=== PATIENT | male | born 1980 | race Caucasian/White ===

== ENCOUNTER 2023-06-28 17:23 | Emergency (ER) | payer OTHER ==
[2023-06-28 17:59] VITALS: PULSE 78; RESP 18; TEMP 98.3
--- NOTE | 2023-06-28 19:05 | ED ---
General Adult HPI - General Chief complaint: Dental/Oral Stated complaint: poss L Side of Jaw Dislocate Time Seen by Provider: 06/28/23 17:45 Source: patient, RN notes reviewed, old records reviewed Mode of arrival: ambulatory Limitations: no limitations - History of Present Illness Initial comments: 43-year-old male with left sided jaw pain. Patient has been progressive. No specific injury. He believes that his job may be malaligned because he is unable to close his teeth Diaz. He does have history of poor dentition and has had teeth removed on the right. No fever. No facial swelling. He also reports history of TMJ and states he grinds his teeth at night. - Related Data Allergies Allergy/AdvReac Type Severity Reaction Status Date / Time No Known Allergies Allergy Verified 06/28/23 17:48 Review of Systems ROS Statement: Those systems with pertinent positive or pertinent negative responses have been documented in the HPI. ROS Other: All systems not noted in ROS Statement are negative. Past Medical History Past Medical History: GERD/Reflux History of Any Multi-Drug Resistant Organisms: None Reported Past Surgical History: Orthopedic Surgery Additional Past Surgical History / Comment(s): R Hand Past Psychological History: ADD/ADHD, Anxiety, Depression Smoking Status: Former smoker Past Alcohol Use History: None Reported Past Drug Use History: Marijuana General Exam Limitations: no limitations General appearance: alert, in no apparent distress Head exam: Present: atraumatic, normocephalic Eye exam: Present: normal appearance, PERRL ENT exam: Present: other (Mentation, patient is able to open and close his jaw but does have an underbite) Respiratory exam: Present: normal lung sounds bilaterally. Absent: respiratory distress, wheezes Cardiovascular Exam: Present: regular rate, normal rhythm GI/Abdominal exam: Present: soft. Absent: distended, tenderness, guarding Extremities exam: Present: normal inspection, normal capillary refill Neurological exam: Present: alert, oriented X3, CN II-XII intact. Absent: motor sensory deficit Psychiatric exam: Present: normal affect, normal mood Skin exam: Present: warm, dry, intact. Absent: cyanosis, diaphoretic Course Vital Signs 06/28/23 17:44 Temperature 98.3 F Pulse Rate 78 Respiratory 18 Rate Blood Pressure 126/78 O2 Sat by Pulse 97 Oximetry Medical Decision Making - Medical Decision Making Was pt. sent in by a medical professional or institution (MARAL Saul, HIGH SCHOOL ENGLISH TEACHER, urgent care, hospital, or senior living...) When possible be specific @ -No Did you speak to anyone other than the patient for history (EMS, parent, family, police, friend...)? What history was obtained from this source @ -No Did you review nursing and triage notes (agree or disagree)? Why? @ -I reviewed and agree with nursing and triage notes Were old charts reviewed (outside hosp., previous admission, EMS record, old EKG, old radiological studies, urgent care reports/EKG's, senior living records)? Report findings @ -No old charts were reviewed Differential Diagnosis (chest pain, altered mental status, abdominal pain women, abdominal pain men, vaginal bleeding, weakness, fever, dyspnea, syncope, headache, dizziness, GI bleed, back pain, seizure, CVA, palpatations, mental health, musculoskeletal)? @ Toothache, pulpitis, jaw subluxation or dislocation, TMJ syndrome EKG interpreted by me (3pts min.). @ -As above X-rays interpreted by me (1pt min.). @ -None done CT interpreted by me (1pt min.). @ -[CT of the facial bones is negative for fracture dislocation, negative for acute findings. U/S interpreted by me (1pt. min.). @ -None done What testing was considered but not performed or refused? (CT, X-rays, U/S, labs)? Why? @ -None What meds were considered but not given or refused? Why? @ -None Did you discuss the management of the patient with other professionals (professionals i.e. MARAL Saul, HIGH SCHOOL ENGLISH TEACHER, lab, RT, psych nurse, transition social worker, transfer worker, teacher, correction officer head, protective services case worker)? Give summary @ -No Was smoking cessation discussed for >3mins.? @ -No Was critical care preformed (if so, how long)? @ -No Were there social determinants of health that impacted care today? How? (Homelessness, low income, unemployed, alcoholism, drug addiction, transportation, low edu. Level, literacy, decrease access to med. care, [facility], rehab)? @ -No Was there de-escalation of care discussed even if they declined (Discuss DNR or withdrawal of care, Hospice)? DNR status @ -No What co-morbidities impacted this encounter? (DM, HTN, Smoking, COPD, CAD, Cancer, CVA, ARF, Chemo, Hep., AIDS, mental health diagnosis, sleep apnea, morbid obesity)? @ -None Was patient admitted / discharged? Hospital course, mention meds given and route, prescriptions, significant lab abnormalities, going to OR and other pertinent info. @ -Patient will be discharged home, instructed to use a bite block and follow- up with his dentist and primary care doctor. Undiagnosed new problem with uncertain prognosis? @ -No Drug Therapy requiring intensive monitoring for toxicity (Heparin, Nitro, Insulin, Cardizem)? @ -No Were any procedures done? @ -No Diagnosis/symptom? @ Jaw pain Acute, or Chronic, or Acute on Chronic? @ -Acute Uncomplicated (without systemic symptoms) or Complicated (systemic symptoms)? @ -default Side effects of treatment? @ -No Exacerbation, Progression, or Severe Exacerbation? @ -No Poses a threat to life or bodily function? How? (Chest pain, [place], [place], pneumonia, PE, COPD, DKA, ARF, appy, cholecystitis, CVA, Diverticulitis, Homicidal, Suicidal, threat to staff... and all critical care pts) @ -No Disposition Clinical Impression: Temporomandibular joint disorder Disposition: HOME SELF-CARE Condition: Good Instructions (If sedation given, give patient instructions): Temporomandibular Disorder (ED) Is patient prescribed a controlled substance at d/c from ED?: No Referrals: Aniya Cyr DO [Primary Care Provider] - 1-2 days Time of Disposition: 19:14
--- NOTE | 2023-06-28 19:11 | CT ---
EXAMINATION TYPE: CT facial bones wo con CT DLP: 575.3 mGycm, Automated exposure control for dose reduction was used. DATE OF EXAM: 06/28/2023 6:50 PM COMPARISON: None. CLINICAL INDICATION:Male, 43 years old with history of left jaw pain; PHH, left side jaw pain TECHNIQUE: Multiple unenhanced axial CT images were obtained of the facial bones soft tissue and bone windows. Coronal, axial and sagittal reformatted images were also provided in soft tissue and bone windows and submitted for interpretation. Additional 3-D reformatted images were obtained on a [employer] workstation. FINDINGS: There is no evidence of fracture, subluxation, dislocation, or significant soft tissue swelling. The orbital contents are unremarkable.The temporal-mandibular joints appear symmetric. The visualized por tion of the paranasal sinuses appear clear. IMPRESSION: No evidence of fracture. There are acute process involving the jaw. Consider further evaluation with MRI.
[2023-06-28 19:21] VITALS: BP 132/80
== END 2023-06-28 19:16 | disposition home or self-care (01) ==
LOC: EC 17:23
DX: M26.602 Left temporomandibular joint disorder, unspecified (principal); F12.90 Cannabis use, unspecified, uncomplicated; Z86.59 Personal history of other mental and behavioral disorders; Z87.891 Personal history of nicotine dependence
CPT/HCPCS: 70486; 99283

== ENCOUNTER 2023-10-01 11:00 | Emergency (ER) | payer OTHER ==
[2023-10-01] MEDS ORDERED: ORPHENADRINE 30 MG/ML 2 ML VIAL IM STA (11:18)
--- NOTE | 2023-10-01 11:23 | ED ---
Back Pain HPI - General Chief Complaint: Back Pain/Injury Stated Complaint: Back Pain Time Seen by Provider: 10/01/23 11:06 Source: patient, RN notes reviewed Limitations: no limitations - History of Present Illness Initial Comments: Patient is a 43-year-old male presented ER with chief complaint of back pain. 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 Patient states that his back hyperextended. Patient has been endorsing lower back pain with radiation into his hips and testicle since. Patient has been taking [id number] analgesics without relief. Patient denies any fevers, IV drug use, bowel or bladder incontinence, difficulty walking. He does endorse some reading pain down his legs with movement. Patient states it's been extremely painful for him to move at all. Patient denies any histories of hernias. Patient denies any other complaints or injuries. - Related Data Previous Rx's Medication Instructions Recorded Ketorolac [Toradol] 10 mg PO Q8HR #15 tab 10/01/23 Orphenadrine [Norflex] 100 mg PO Q12H #14 tab 10/01/23 Allergies Allergy/AdvReac Type Severity Reaction Status Date / Time No Known Allergies Allergy Verified 10/01/23 11:04 Review of Systems ROS Statement: Those systems with pertinent positive or pertinent negative responses have been documented in the HPI. ROS Other: All systems not noted in ROS Statement are negative. Past Medical History Past Medical History: GERD/Reflux History of Any Multi-Drug Resistant Organisms: None Reported Past Surgical History: Orthopedic Surgery Additional Past Surgical History / Comment(s): R Hand Past Psychological History: ADD/ADHD, Anxiety, Depression Smoking Status: Former smoker Past Alcohol Use History: None Reported Past Drug Use History: Marijuana General Exam Limitations: no limitations General appearance: alert, in no apparent distress Head exam: Present: atraumatic, normocephalic, normal inspection Respiratory exam: Present: normal lung sounds bilaterally. Absent: respiratory distress, wheezes, rales, rhonchi, stridor Cardiovascular Exam: Present: regular rate, normal rhythm, normal heart sounds. Absent: systolic murmur, diastolic murmur, rubs, gallop, clicks exam: Present: normal inspection, circumcision, other Extremities exam: Present: normal inspection, full ROM, normal capillary refill. Absent: tenderness, pedal edema, joint swelling, calf tenderness Back exam: Present: tenderness (lower thoracic and lubmar left pelvis) Neurological exam: Present: alert, oriented X3, CN II-XII intact Psychiatric exam: Present: normal affect, normal mood Skin exam: Present: warm, dry, intact, normal color. Absent: rash Course Vital Signs 10/01/23 10/01/23 11:02 12:31 Temperature 98.5 F 97.8 F Pulse Rate 107 H 96 Respiratory 18 20 Rate Blood Pressure 126/79 132/84 O2 Sat by Pulse 98 96 Oximetry Medical Decision Making - Medical Decision Making Was pt. sent in by a medical professional or institution (, PA, PRIVATE DUTY RN, urgent care, hospital, or residential...) When possible be specific @ -No Did you speak to anyone other than the patient for history (EMS, parent, family, police, friend...)? What history was obtained from this source @ -No Did you review nursing and triage notes (agree or disagree)? Why? @ -I reviewed and agree with nursing and triage notes Were old charts reviewed (outside hosp., previous admission, EMS record, old EKG, old radiological studies, urgent care reports/EKG's, residential records)? Report findings @ -No old charts were reviewed Differential Diagnosis (chest pain, altered mental status, abdominal pain women, abdominal pain men, vaginal bleeding, weakness, fever, dyspnea, syncope, headache, dizziness, GI bleed, back pain, seizure, CVA, palpatations, mental health, musculoskeletal)? @ -Differential Back Pain: Strain, zoster, cauda equina syndrome, epidural abscess, vertebral osteomyelitis, discitis, fracture, subluxation, disc herniation, DJD, spinal stenosis, dissection, AAA, pancreatitis, peptic ulcer disease, pyelonephritis, kidney stone, this is not meant to be an all-inclusive list. EKG interpreted by me (3pts min.). @ -None X-rays interpreted by me (1pt min.). @ -Lumbar spine x-ray showed no acute process. AP pelvis with bilateral hips show a superior femoral head neck junction osseous excrescences. 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 No other acute osseous abnormality present. CT interpreted by me (1pt min.). @ -None done U/S interpreted by me (1pt. min.). @ -None done What testing was considered but not performed or refused? (CT, X-rays, U/S, labs)? Why? @ -None What meds were considered but not given or refused? Why? @ -None Did you discuss the management of the patient with other professionals (professionals i.e. , PA, PRIVATE DUTY RN, lab, RT, psych nurse, medical social worker, drain tiler, teacher, chief clinical officer, casework manager)? Give summary @ -No Was smoking cessation discussed for >3mins.? @ -No Was critical care preformed (if so, how long)? @ -No Were there social determinants of health that impacted care today? How? (Homelessness, low income, unemployed, alcoholism, drug addiction, transportation, low edu. Level, literacy, decrease access to med. care, shelter, rehab)? @ -No Was there de-escalation of care discussed even if they declined (Discuss DNR or withdrawal of care, Hospice)? DNR status @ -No What co-morbidities impacted this encounter? (DM, HTN, Smoking, COPD, CAD, Cancer, CVA, ARF, Chemo, Hep., AIDS, mental health diagnosis, sleep apnea, morbid obesity)? @ -None Was patient admitted / discharged? Hospital course, mention meds given and route, prescriptions, significant lab abnormalities, going to OR and other pertinent info. @ -Discharged. Patient is a 43 year old male presenting to the ER with a chief complaint of back pain. Vitals stable. History and physical exam were completed. Xrays obtained of lumbar spine, pelvis, and hips were negative for acute osseous process. No red flag back pain symptoms were present. Patient was given IM Norflex for symptom control. Patient prescribed Norflex and toradol for outpatient symptom control. Imaging results were discussed with patient. I suggested patient to follow-up with orthopedics if symptoms persist. Return parameters were discussed. Patient will be discharged in stable condition with follow-up to PCP/orthopedics. Patient expressed understanding and agreement with care plan. Undiagnosed new problem with uncertain prognosis? @ -No Drug Therapy requiring intensive monitoring for toxicity (Heparin, Nitro, Insulin, Cardizem)? @ -No Were any procedures done? @ -No Diagnosis/symptom? @ -Atypical back pain Acute, or Chronic, or Acute on Chronic? @ -Acute Uncomplicated (without systemic symptoms) or Complicated (systemic symptoms)? @ -Uncomplicated Side effects of treatment? @ -No Exacerbation, Progression, or Severe Exacerbation? @ -No Poses a threat to life or bodily function? How? (Chest pain, [place], [place], pneumonia, PE, COPD, DKA, ARF, appy, cholecystitis, CVA, Diverticulitis, Homicidal, Suicidal, threat to staff... and all critical care pts) @ -No - Radiology Data Radiology results: report reviewed, image reviewed Disposition Clinical Impression: Atypical back pain Disposition: HOME SELF-CARE Condition: Stable Instructions (If sedation given, give patient instructions): Acute Low Back Pain (ED) Additional Instructions: Continue OTC tylenol and motrin for pain control. Follow-up with orthopedics if symptoms persist. Return to the ER for any new or worsening symptoms. Prescriptions: Orphenadrine [Norflex] 100 mg PO Q12H #14 tab Ketorolac [Toradol] 10 mg PO Q8HR #15 tab Is patient prescribed a controlled substance at d/c from ED?: No Referrals: Aniya Cyr DO [Primary Care Provider] - 1-2 days Horace Weiner DO [Doctor of Osteopathic Medicine] - 1-2 days Time of Disposition: 12:26
--- NOTE | 2023-10-01 11:55 | XR ---
EXAMINATION TYPE: XR Hip 2 views Bilateral and AP pelvis, XR lumbar spine 3V DATE OF EXAM: 10/01/2023 COMPARISON: NONE HISTORY: 43-year-old male with pain after slip and fall FINDINGS: Lumbar spine: Transitional lumbosacral segment is noted as a lumbarized S1. Vertebral body heights are preserved. A lignment maintained. Disc spaces are relatively preserved. Pelvis and hips: Bilateral femoral head neck junction osseous excrescences on both sides. Hip joint spaces relatively maintained. No acute fracture, subluxation, or dislocation. SI joints appear symmetric and intact as does the pubic symphysis. IMPRESSION: Lumbar spine: 1. No vertebral compression collapse or malalignment. Pelvis and hips: 2. 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 Correlate for any chronic hip pain. 3. No acute osseous abnormality seen.
[2023-10-01 12:39] VITALS: BP 132/84; PULSE 96; RESP 20; TEMP 97.8
== END 2023-10-01 12:40 | disposition home or self-care (01) ==
LOC: EC 11:00
DX: M54.50 Low back pain, unspecified (principal); Z86.59 Personal history of other mental and behavioral disorders; Z87.891 Personal history of nicotine dependence
CPT/HCPCS: 72100; 73521; 99283; 96372; J2360

== ENCOUNTER 2024-10-20 15:15 | Emergency (ER) | payer OTHER ==
[2024-10-20] MEDS: HYDROmorphone 0.5 MG/0.5 ML SYRINGE IVP STA (16:17)
[2024-10-20] MEDS: LIDOCAINE 4% PATCH TOPICAL STA (16:19)
[2024-10-20] MEDS: KETOROLAC 15 MG/ML 1 ML VIAL IVP STA (16:19)
[2024-10-20] MEDS: SODIUM CHLORIDE 0.9% 1,000 ML IV STA (16:20)
--- NOTE | 2024-10-20 17:05 | XR ---
EXAMINATION TYPE: XR elbow complete bilateral DATE OF EXAM: 10/20/2024 4:51 PM INDICATION: Patient age:Male; 44 years old; Reason for study: pain, fall. radicular symptoms down left side/hip; PHH. pain COMPARISON: None TECHNIQUE: Both elbows were examined in AP, lateral, and oblique projections. FINDINGS: No evidence of any acute osseous pathology, joint dislocation, or soft tissue swelling is n oted. No evidence of joint effusion is present. IV identified within the left antecubital fossa. IMPRESSION: No evidence of acute fracture. [facility], , 10/20/2024 5:03 PM
--- NOTE | 2024-10-20 17:10 | CT ---
EXAMINATION TYPE: CT lumbar spine wo con CT DLP: combined 815.6 mGycm, Automated exposure control for dose reduction was used. DATE OF EXAM: 10/20/2024 4:55 PM COMPARISON: Lumbar spine radiograph 10/01/2023. CLINICAL INDICATION:Male, 44 years old with history of pain, fall. Radicular symptoms down left side/ hip; PHH, Fall x 3 weeks ago, Left hip/SI pain TECHNIQUE: Multiple axial images were obtained from the midportion of T11 through the sacroiliac renita nts. Soft tissue and bone windows in coronal and sagittal planes were obtained and reviewed. Contrast used: none. Oral contrast used: none. FINDINGS: Alignment: There are 5 lumbar type vertebral bodies within normal alignment. Bone: No evidence of fracture is identified. Discs: T12-L1: No spinal canal or neural foraminal stenosis is identified. L1-L2: No spinal canal or neural foraminal stenosis is identified. L2-L3: No spinal canal or neural foraminal stenosis is identified. L3-L4: No spinal canal or neural foraminal stenosis is identified. L4-L5: No spinal canal or neural foraminal stenosis is identified. L5-S1: No spinal canal or neural foraminal stenosis is identified. Other: Minimal dependent left lower lobe subsegmental atelectasis. There are 3 nonobstructive right r enal calculi with largest within the upper pole measuring up to 3 mm. Nonobstructive 2 left renal stephanie culi with largest measuring up to 2 mm. IMPRESSION: 1. No evidence for spinal fracture. 2. Nonobstructive bilateral renal calculi. [facility], , 10/20/2024 5:07 PM
--- NOTE | 2024-10-20 17:13 | CT ---
EXAMINATION TYPE: CT pelvis wo con CT DLP: combined 815.6 mGycm, Automated exposure control for dose reduction was used. DATE OF EXAM: 10/20/2024 4:55 PM COMPARISON: Bilateral hip/pelvic radiograph 10/01/2023, lumbar spine radiograph 10/01/2023, CT lumbar s pine 10/20/2024 CLINICAL INDICATION:Male, 44 years old with history of pain, fall. radicular symptoms down left side/ hip; Fall x 3 weeks ago, Left hip/SI pain TECHNIQUE: Standard CT of the pelvis without IV or oral contrast. Lack of IV or oral contrast limit s evaluation of solid and hollow organ viscera. Coronal and sagittal reformats were performed. FINDINGS: BLADDER: Unremarkable REPRODUCTIVE: Unremarkable. BOWEL: No focal wall thickening or surrounding inflammatory changes. No evidence of bowel obstruction . PERITONEUM: No evidence of pneumoperitoneum or free fluid. VASCULATURE: Pelvic phleboliths. No abdominal aortic aneurysm within the visualized abdominal aorta. MUSCULOSKELETAL: No acute osseous abnormalities. SI joints are intact. 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 LYMPH NODES: No gross evidence for lymphadenopathy. SOFT TISSUE/ABDOMINAL WALL: Unremarkable IMPRESSION: No CT evidence for acute fracture. [facility], , 10/20/2024 5:11 PM
--- NOTE | 2024-10-20 17:57 | ED ---
General Adult HPI - General Chief complaint: Fall Stated complaint: fall Time Seen by Provider: 10/20/24 15:40 Source: patient, EMS, RN notes reviewed, old records reviewed Mode of arrival: ambulatory Limitations: physical limitation - History of Present Illness Initial comments: Patient is a 44-year-old male who presents emergency department complaining of back pain. Is also complaining of elbow pain. Fell a few weeks ago on ice has been having pain since. States it is worse today. Describes the elbow pain is located just in the elbow with radiation down his arms bilaterally, left worse than right. Patient was also complaining of lower back pain primarily on the left side with radiation down the left leg. Denies any saddle paresthesias. Denies any urinary or bowel incontinence or retention. Denies any paralysis of the lower extremities. Pain was worse today and presents for further evaluation. He does have a history of chronic back pain. - Related Data Home Medications Medication Instructions Recorded Confirmed ALPRAZolam [Xanax] 1 mg PO DAILY PRN 10/20/24 10/20/24 Dextroamphetamine/Amphetamine 30 mg PO BID 10/20/24 10/20/24 [Adderall] Previous Rx's Medication Instructions Recorded Gabapentin [Neurontin] 100 mg PO BID 5 Days #10 cap 10/20/24 Allergies Allergy/AdvReac Type Severity Reaction Status Date / Time No Known Allergies Allergy Verified 10/20/24 17:50 Review of Systems ROS Statement: Those systems with pertinent positive or pertinent negative responses have been documented in the HPI. Review of Systems: CONST: Denies fever EYES: Denies blurry vision ENT: Denies nasal congestion C/V: Denies Chest pain RESP: Denies shortness of breath GI: Denies abdominal pain : Denies dysuria SKIN: Denies rash. MSK: Endorses back pain NEURO: Denies headache ROS Other: All systems not noted in ROS Statement are negative. Past Medical History Past Medical History: GERD/Reflux History of Any Multi-Drug Resistant Organisms: None Reported Past Surgical History: Orthopedic Surgery Additional Past Surgical History / Comment(s): R Hand Past Psychological History: ADD/ADHD, Anxiety, Depression Smoking Status: Former smoker Past Alcohol Use History: None Reported Past Drug Use History: Marijuana General Exam - General Exam Comments Initial Comments: General: Appears in mild distress secondary to back pain. HEAD: Normal with no signs of head trauma. EYES: PERRLA, EOMI, conjunctiva normal, no discharge. ENT: Hearing grossly intact, normal oropharynx. RESPIRATORY: Clear breath sounds bilaterally. No wheezes, rales, or rhonchi. C/V: Regular rate and rhythm. S1 and S2 auscultated, no edema, peripheral pulses 2+ and intact throughout ABD: Abd is soft, nontender, nondistended EXT: Normal range of motion, no obvious deformity tenderness to palpation of the lower lumbar spine and paraspinal muscles with radiation down the left leg with palpation. Mild tenderness palpation of the elbows. No obvious deformities. No step-offs or deformities of the spine. SKIN: No rashes or lesions observed on exposed skin. NEURO: Alert and oriented x 4. No focal deficits. Limitations: physical limitation Course Vital Signs 10/20/24 10/20/24 15:25 18:05 Temperature 98.4 F 98.9 F Pulse Rate 68 80 Respiratory 16 18 Rate Blood Pressure 114/77 132/86 O2 Sat by Pulse 98 Oximetry Medical Decision Making - Medical Decision Making Was pt. sent in by a medical professional or institution (, PA, ELECTRIC METER REPAIRER, urgent care, hospital, or group home...) When possible be specific @ -[No] Did you speak to anyone other than the patient for history (EMS, parent, family, police, friend...)? What history was obtained from this source @ -[No] Did you review nursing and triage notes (agree or disagree)? Why? @ -[I reviewed and agree with nursing and triage notes] Were old charts reviewed (outside hosp., previous admission, EMS record, old EKG, old radiological studies, urgent care reports/EKG's, group home records)? Report findings @ -[No old charts were reviewed] Differential Diagnosis (chest pain, altered mental status, abdominal pain women, abdominal pain men, vaginal bleeding, weakness, fever, dyspnea, syncope, headache, dizziness, GI bleed, back pain, seizure, CVA, palpatations, mental health, musculoskeletal)? @ -Differential Musculoskeletal Muscular strain, contusion, ligament sprain, fracture, arthritis, septic arthritis, bursitis, cellulitis, muscle spasm, nerve compression, DVT, arterial occlusion, herpes zoster, electrolyte abnormality, tumor.... This is not meant to be in all inclusive list EKG interpreted by me (3pts min.). @ -None done X-rays interpreted by me (1pt min.). @ -Elbow x-ray is negative for any obvious traumatic injury. CT interpreted by me (1pt min.). @ -CT pelvis, lumbar spine negative for any obvious traumatic injury. U/S interpreted by me (1pt. min.). @ -[None done] What testing was considered but not performed or refused? (CT, X-rays, U/S, labs)? Why? @ -[None] What meds were considered but not given or refused? Why? @ -[None] Did you discuss the management of the patient with other professionals (professionals i.e. DrRachel, PA, ELECTRIC METER REPAIRER, lab, RT, psych nurse, director of social media marketing, showroom sales assistant, teacher, police patrol officer, case picker)? Give summary @ -[No] Was smoking cessation discussed for >3mins.? @ -[No] Was critical care preformed (if so, how long)? @ -[No] Were there social determinants of health that impacted care today? How? (Homelessness, low income, unemployed, alcoholism, drug addiction, transportation, low edu. Level, literacy, decrease access to med. care, residential, rehab)? @ -[No] Was there de-escalation of care discussed even if they declined (Discuss DNR or withdrawal of care, Hospice)? DNR status @ -[No] What co-morbidities impacted this encounter? (DM, HTN, Smoking, COPD, CAD, Cancer, CVA, ARF, Chemo, Hep., AIDS, mental health diagnosis, sleep apnea, morbid obesity)? @ -[None] Was patient admitted / discharged? Hospital course, mention meds given and route, prescriptions, significant lab abnormalities, going to OR and other pertinent info. @ -Based on patient's presentation and physical exam, presents with acute on chronic back pain secondary to fall. We will obtain x-rays of the elbows as well as spine. No red flag symptoms concerning for cauda equina syndrome. Vitals within acceptable limits. Patient will be administered IV fluids and analgesia medications in addition to obtaining imaging. Imaging negative for any obvious traumatic injury. Discussed results with patient. He will be given prescription for gabapentin as well as follow-up with spine surgery. Patient was in agreement this plan. I will provide the patient with a prescription for gabapentin. I instructed the patient to follow up with their PCP in the next 1-3 days. [I provided contact information for follow up with] orthopedics. I explained that the patient should return to the emergency department if they experience any worsening symptoms. Strict return precautions were discussed with the patient. The patient expressed understanding of these instructions. I answered all questions that the patient had. The patient was discharged home in [good] condition with their prescriptions and follow up information. Undiagnosed new problem with uncertain prognosis? @ -[No] Drug Therapy requiring intensive monitoring for toxicity (Heparin, Nitro, Insulin, Cardizem)? @ -[No] Were any procedures done? @ -[No] Diagnosis/symptom? @ -Chronic back pain, lumbar radiculopathy, fall Acute, or Chronic, or Acute on Chronic? @ -Acute on chronic Uncomplicated (without systemic symptoms) or Complicated (systemic symptoms)? @ -Uncomplicated Side effects of treatment? @ -[No] Exacerbation, Progression, or Severe Exacerbation? @ -[No] Poses a threat to life or bodily function? How? (Chest pain, [place], [place], pneumonia, PE, COPD, DKA, ARF, appy, cholecystitis, CVA, Diverticulitis, Homicidal, Suicidal, threat to staff... and all critical care pts) @ -Unlikely at this time Disposition Clinical Impression: Fall, Chronic back pain, Lumbar radiculopathy Disposition: HOME SELF-CARE Condition: Good Instructions (If sedation given, give patient instructions): Lumbar Radiculopathy (ED), Fall Prevention (ED) Prescriptions: Gabapentin [Neurontin] 100 mg PO BID 5 Days #10 cap Is patient prescribed a controlled substance at d/c from ED?: No Referrals: None,Stated [Primary Care Provider] - 1-2 days Kaushal Tidwell DO [Doctor of Osteopathic Medicine] - 1-2 days Time of Disposition: 17:55
[2024-10-20] MEDS: ACET/COD 300 MG/30 MG STARTER PACK 6 TAB BTL PO STA (17:59)
[2024-10-20] MEDS: methylPREDNISolone SOD SUCCI 40 MG/ML 1 ML VIAL IV STA (18:00)
[2024-10-20 18:09] VITALS: BP 132/86; PULSE 80; RESP 18; TEMP 98.9
== END 2024-10-20 18:42 | disposition home or self-care (01) ==
LOC: EC 15:15
DX: M54.16 Radiculopathy, lumbar region (principal); G89.29 Other chronic pain; M25.522 Pain in left elbow; M25.521 Pain in right elbow; Z87.891 Personal history of nicotine dependence; W00.9XXA Unspecified fall due to ice and snow, initial encounter
CPT/HCPCS: 73080; 72192; 72131; 99284; 96374; 96375 ×2; 96361; J1885; J1171; J2919